=== PATIENT | female | born 1990 | race African-American/Black ===

== ENCOUNTER 2021-12-09 07:09 | Emergency (ER) | payer MEDICAID ==
[~2021-12-09] VITALS: Ht 165.1 cm; Wt 99.0 kg
[~2021-12-09 07:09] MED LIST: FLUT1DIS3 INH; ONDA4TAB5 PO; PREN-88 PO
[2021-12-09 08:13] LABS: BASOPHILS % 0.9 % (0.0-2.0); EOSINOPHILS % 3.4 % (0.0-5.0); HEMATOCRIT. 37.2 % (36.0-48.0); HEMOGLOBIN. 12.6 g/dL (12.0-16.0); LYMPHOCYTES % 46.9 % (20.0-50.0); MEAN CORPUSCULAR HEMOGLOBIN 31.3 pg (28.0-32.0); MEAN CORPUSCULAR VOLUME 92.6 fL (81.0-99.0); MEAN PLATELET VOLUME 8.4 fl (7.4-10.4); MONOCYTES % 11.5 % (2.0-8.0); NEUTROPHILS % 37.3 % (40.0-76.0); PLATELET 294 x1000/uL (130-400); RED BLOOD CELL COUNT 4.02 mill/uL (4.2-5.4); RED CELL DISTRIBUTION WIDTH 14.4 % (11.6-14.6)
[2021-12-09 08:19] LABS: CHLORIDE 106 mEq/L (98-107)
[2021-12-09] MEDS ORDERED: LORAZEPAM 1MG TABLET PO ONE (08:30)
[2021-12-09 09:38] VITALS: BP 138/89
== END 2021-12-09 09:39 | disposition home or self-care (01) ==
LOC: ER 07:09
DX: F41.9 Anxiety disorder, unspecified (principal); F32.9 Major depressive disorder, single episode, unspecified; R00.0 Tachycardia, unspecified; I10 Essential (primary) hypertension; Z98.51 Tubal ligation status; Z98.890 Other specified postprocedural states
CPT/HCPCS: 36415; 71045; 80053; 83880; 84484; 85025; 93005; 99285